=== PATIENT | female | born 1970 | race Caucasian/White ===

== ENCOUNTER → 2017-03-24 | Outpatient (CLI) | payer OTHER | LOC: FIMAGING 07:21 | DX: Z12.31 Encounter for screening mammogram for malignant neoplasm of breast (principal) | CPT/HCPCS: G0202 ==

== ENCOUNTER → 2017-06-11 | Outpatient (CLI) | payer OTHER | LOC: CIMAGING 07:59 | PROVIDERS: ATTEND Family Medicine | DX: M79.9 Soft tissue disorder, unspecified (principal) | CPT/HCPCS: 73060-PO ==

== ENCOUNTER → 2018-04-04 | Outpatient (CLI) | payer OTHER | LOC: FIMAGING 07:19 | PROVIDERS: ATTEND Obstetrics & Gynecology | DX: Z12.31 Encounter for screening mammogram for malignant neoplasm of breast (principal) ==

== ENCOUNTER → 2019-04-06 | Outpatient (CLI) | payer OTHER | LOC: FIMAGING 07:17 | PROVIDERS: ATTEND Obstetrics & Gynecology | DX: Z12.31 Encounter for screening mammogram for malignant neoplasm of breast (principal) ==